=== PATIENT | male | born 1965 | race Hispanic/Latino ===

== ENCOUNTER 2021-06-07 09:42 | Emergency (ER) | payer OTHER ==
[~2021-06-07] VITALS: Ht 170.2 cm; Wt 104.3 kg
[2021-06-07 09:49] VITALS: BP 160/80
[2021-06-07] MEDS ORDERED: MECLIZINE HCL 12.5 MG TABLET PO SCH (10:30)
[2021-06-07] MEDS ORDERED: MECLIZINE HCL 25 MG TABLET ONE (10:48)
[2021-06-07 10:49] LABS: BASOPHILS % (AUTO) 0.3 % (0.0-5.0); EOSINOPHILS % (AUTO) 0.9 % (0.0-8.0); HEMATOCRIT 48.5 % (42-54); LYMPHOCYTES % (AUTO) 13.3 % (21.0-51.0); MEAN CORPUSCULAR HGB CONC 32.2 g/dL (32.0-36.0); MONOCYTES % (AUTO) 6.6 % (3.0-13.0); NEUTROPHILS % (AUTO) 78.2 % (40.0-77.0); PLATELET COUNT (AUTO) 189 K/uL (130-400); RED BLOOD CELL COUNT(AUTO) 5.99 MIL/uL (4.50-6.20); RED CELL DISTRIBUTION WIDTH 12.8 % (11.0-15.5)
[2021-06-07 10:59] LABS: CREATININE 1.1 mg/dL (0.5-1.5); POTASSIUM 4.1 mmol/L (3.5-5.1)
[2021-06-07 11:04] LABS: ALBUMIN 3.8 g/dL (3.5-5.0); BILIRUBIN,TOTAL 0.5 mg/dL (0.2-1.0); TOTAL PROTEIN, SERUM 7.3 g/dL (6.0-8.3)
[2021-06-07] MEDS ORDERED: MECL-226 PO (11:18)
== END 2021-06-07 11:52 | disposition home or self-care (01) ==
LOC: EDH 09:42
DX: R42 Dizziness and giddiness (principal); R10.9 Unspecified abdominal pain; R11.0 Nausea; K21.9 Gastro-esophageal reflux disease without esophagitis
CPT/HCPCS: 36415; 80053; 85025